=== PATIENT | female | born 1950 | race Caucasian/White ===

== ENCOUNTER 2018-07-05 16:06 | Outpatient (REF) | payer OTHER, SELFPAY ==
[2018-07-05 21:00] LABS: HCT 37.6 % (36.0-46.0); HGB 12.3 g/dL (12.0-15.5); Mean Corp. HGB Concentration 32.7 g/dL (32.0-36.0); Mean Corpuscular Hemoglobin 32.7 pg (27.0-33.0); Mean Platelet Volume 9.2 fL (8.0-11.0); Platelet Count 235 x1000/uL (130-400); RBC 3.76 m/cumm (4.00-5.20); RBC Distribution Width 12.3 % (11.7-14.6); White Blood Cell Count 6.48 k/cumm (4.4-10.8)
[2018-07-05 21:22] LABS: Anion Gap 6.2 mmol/L (3-11); BUN 15 mg/dL (7-18); CO2 29.8 mmol/L (21.0-32.0); CREATININE 0.82 mg/dL (0.55-1.02); Calcium 8.8 mg/dL (8.5-10.1); Chloride 103 mmol/L (98-107); FREE T4 1.01 ng/dL (0.76-1.46); Glucose 73 mg/dL (70-100); Potassium 3.7 mmol/L (3.5-5.1); Sodium 139 mmol/L (136-145); TSH 1.37 uIU/mL (0.358-3.74)
[2018-07-07 17:52] LABS: T3,Free 3.3 pg/ml (2.8-5.3)
[2018-07-08 11:49] LABS: Hepatitis C Ab w Rflx HCV PCR Negative (NEGAT)
== END 2018-07-05 16:26 ==
LOC: NCHCN 16:06
PROVIDERS: Visit Provider Nurse Practitioner Family
DX: E04.1 Nontoxic single thyroid nodule (principal); Z11.59 Encounter for screening for other viral diseases
CPT/HCPCS: 80048; 85027; 86803; 84439; 84443; 84481

== ENCOUNTER 2018-07-12 00:27 | Outpatient (CLI) | payer OTHER, SELFPAY ==
--- NOTE | 2018-07-12 11:36 | DI.US_ITS ---
SYMPTOM/DIAGNOSIS: LT THYROID NODULE, E04.1 THYROID ULTRASOUND: Comparison is made with 22 June 2010. The thyroid is again noted to be diffusely enlarged with numerable nodules isoechoic to thyroid tissue. No dominant mass or cyst is seen. Palpable area in the isthmus corresponds to 1.3 cm nodule in the isthmus. The right lobe measures 1.5 x 1.9 x 5.1 cm. The left lobe measures 1.7 x 1.7 x 5.6 cm. The interval thyroid size may have decreased when compared to 2010 exam. IMPRESSION: Multinodular thyroid
== END 2018-07-12 00:47 ==
PROVIDERS: PCP Family Medicine; Visit Provider Nurse Practitioner Family
DX: E04.2 Nontoxic multinodular goiter (principal)
CPT/HCPCS: 76536

== ENCOUNTER 2018-11-25 01:08 | Outpatient (CLI) | payer OTHER, SELFPAY ==
--- NOTE | 2018-11-25 17:14 | DI.MAMMO_ITS ---
SYMPTOM/DIAGNOSIS: SCREENING, Z12.31 MAMMOGRAMS: Mammograms were interpreted according to the usual protocol including computer analysis with CAD system, tomosynthesis and C view imaging. Comparison is made with prior examinations. Breast density, Category C. No suspicious masses or microcalcifications are seen. There is no definite evidence of malignancy. IMPRESSION: Negative mammogram. Routine screening is recommended. Category 1. MQSA ASSESSMENT OF FINDINGS: Negative. Category 1. Patient will receive a letter notifying them of these results. Bi-RADS category C. The breasts are heterogeneously dense, which may obscure small masses.
== END 2018-11-25 01:28 ==
PROVIDERS: PCP Family Medicine; Visit Provider Nurse Practitioner Family
DX: Z12.31 Encounter for screening mammogram for malignant neoplasm of breast (principal)
CPT/HCPCS: 77063; 77067

== ENCOUNTER 2019-05-12 16:47 | Outpatient (REF) | payer OTHER, SELFPAY ==
[2019-05-12 22:00] LABS: TSH (W/Ref FT4) 1.41 uIU/mL (0.36-3.74)
== END 2019-05-12 17:07 ==
LOC: NCHCN 16:47
PROVIDERS: PCP Family Medicine; Visit Provider Nurse Practitioner Family
DX: E04.2 Nontoxic multinodular goiter (principal); M85.80 Other specified disorders of bone density and structure, unspecified site; J45.30 Mild persistent asthma, uncomplicated; J30.9 Allergic rhinitis, unspecified
CPT/HCPCS: 84443

== ENCOUNTER 2019-08-21 13:26 | Outpatient (REF) | payer OTHER, SELFPAY ==
--- NOTE | 2019-08-21 09:42 | SKI_PTH ---
PATIENT: Lianne Patino LOC: [facility] U#:[id number] AGE/SX: 69/F ROOM: RE08/21/[address]: Han Smith MD : [id number] BED: DIS: 08/21/2019 SPEC #: [id number] RECD: 08/21/19 17:54 STATUS: IBRAHIMA REQ #: [id number] MARLEN: 08/21/19 09:[address]: Han Smith DEPT: Surgical Specimen RECD BY: Elena Henriquez ENTERED: 08/21/19 17:55 SP TYPE: CANDICE HERRERA DR: Deirdre Mata Tissues: 1 - SKIN BIOPSY(SHAVE/PUNCH) Procedures: SKIN LEVEL 4 Comments: [id number]
== END 2019-08-21 13:46 ==
LOC: LBN 13:26
PROVIDERS: PCP Family Medicine; Visit Provider Otolaryngology
DX: L82.0 Inflamed seborrheic keratosis (principal)
CPT/HCPCS: 88305

== ENCOUNTER 2020-02-24 21:44 | Outpatient (REF) | payer OTHER, SELFPAY ==
[2020-02-24 21:51] LABS: TSH 1.38 uIU/mL (0.36-3.74)
[2020-02-24 22:30] LABS: FREE T4 0.92 ng/dL (0.76-1.46)
== END 2020-02-24 22:04 ==
LOC: NCHCN 21:44
PROVIDERS: PCP Family Medicine; Visit Provider Physician Assistant
DX: E04.2 Nontoxic multinodular goiter (principal)
CPT/HCPCS: 84439; 84443

== ENCOUNTER 2020-03-18 01:45 | Outpatient (CLI) | payer OTHER, SELFPAY ==
--- NOTE | 2020-03-18 10:20 | DI.MAMMO_ITS ---
EXAM: MAMMO SCREENING CLINICAL HISTORY: SCREENING, [facility],Z00.00 TECHNIQUE: Mammograms were interpreted according to the usual protocol including computer analysis w [employer] CAD system, tomosynthesis and C-view imaging. COMPARISON: 2010 through 2018 FINDINGS: The breasts are composed of heterogeneously dense fibroglandular densities, Breast Density category C . No suspicious masses or suspicious microcalcifications are seen. No skin thickening or abnormal axillary lymph nodes are seen. There has been no significant change from prior exams. IMPRESSION: BI-RADS Category 1: Negative Yearly screening mammography is recommended. Breast Density Category C, heterogeneously dense tissue which decreases the sensitivity of the mammog jagdish. The mammogram demonstrates the patient's breast tissue is dense. Dense breast tissue is very common a nd is not abnormal but dense breast tissue can make it harder to find cancer on a mammogram. Also, de nse breast tissue may increase breast cancer risk. This information about the result of the mammogram report was provided to the patient to raise their awareness. Use this report when you speak with the patient about their risks for breast cancer, which includes their family history. At that time, you may recommend additional screening tests (Ultrasound or MRI) as they might be useful based on their r isk. A negative radiographic report should not delay biopsy if a dominant or clinically suspicious mass is present. Up to ten percent of cancers are not identified on mammography. A negative report may reinforce clinical impression. Adenosis and dense breasts may obscure an underlying neoplasm. False positive reports average 6 to 10%.
== END 2020-03-18 02:05 ==
PROVIDERS: PCP Family Medicine; Visit Provider Physician Assistant
DX: Z12.31 Encounter for screening mammogram for malignant neoplasm of breast (principal); Z00.00 Encounter for general adult medical examination without abnormal findings; R92.2 Inconclusive mammogram
CPT/HCPCS: 77063; 77067

== ENCOUNTER 2020-11-15 16:03 | Outpatient (REF) | payer MEDICARE, SELFPAY ==
[2020-11-15 20:44] LABS: HCT 33.8 % (36.0-46.0); HGB 11.1 g/dL (11.2-15.7); MCH 32.6 pg (27.0-33.0); MCHC 32.8 % (32.0-36.0); MCV 99.4 fL (80-95); MPV 9.4 fL (8.0-11.0); Platelet Count 218 10^3/uL (130-400); RDW 12.2 % (11.7-14.6); RDW-SD 44.5 fL; WBC 6.74 10^3/uL (4.4-10.8)
[2020-11-15 21:23] LABS: ALT 21 U/L (14-59); AST 18 U/L (15-37); Albumin 3.1 g/dL (3.4-5.0); Alkaline Phosphatase 55 U/L (46-116); Anion Gap 8.1 mmol/L (3-11); BUN 13 mg/dL (7-18); Bilirubin, Total 0.3 mg/dL (0.2-1.0); CO2 28.9 mmol/L (21.0-32.0); CREATININE 0.9 mg/dL (0.55-1.02); Calcium 8.3 mg/dL (8.5-10.1); Chloride 105 mmol/L (98-107); Glucose 80 mg/dL (74-106); Potassium 3.9 mmol/L (3.5-5.1); Sodium 142 mmol/L (136-145); TSH (W/Ref FT4) 1.68 uIU/mL (0.36-3.74); Total Protein 8.5 g/dL (6.4-8.2); Vitamin B12 516 pg/mL (193-986)
== END 2020-11-15 16:04 | disposition home or self-care (01) ==
LOC: NCHCN 16:03
PROVIDERS: PCP Family Medicine; Visit Provider Family Medicine
DX: R41.3 Other amnesia (principal); E04.2 Nontoxic multinodular goiter
CPT/HCPCS: 80053; 85027; 82607; 84443

== ENCOUNTER 2020-12-07 23:07 | Outpatient (REF) | payer MEDICARE, SELFPAY ==
[2020-12-07 13:48] LABS: Iron 34 ug/dL (50-170); Total Iron Binding Capacity 248 ug/dL (250-450)
[2020-12-07 13:49] LABS: Ferritin 95 ng/mL (8-252)
== END 2020-12-07 23:08 | disposition home or self-care (01) ==
LOC: NCHCN 23:07
PROVIDERS: PCP Family Medicine; Visit Provider Nurse Practitioner Family
DX: D64.9 Anemia, unspecified (principal)
CPT/HCPCS: 82728; 83540; 83550

== ENCOUNTER 2021-02-24 14:58 | Outpatient (REF) | payer MEDICARE, SELFPAY ==
[2021-02-24 13:58] LABS: Abs Immature Grans 0.01 10^3/uL (0.0-0.06); Absolute Basophil Count 0.05 10^3/uL (0.0-0.2); Absolute Eosinophil Count 0.24 10^3/uL (0.0-0.7); Absolute Lymphocyte Count 1.27 10^3/uL (1.2-3.4); Absolute Monocyte Count 0.44 10^3/uL (0.1-0.8); Absolute Neutrophil Count 2.11 10^3/uL (1.2-6.7); Basophils % 1.2; Eosinophils % 5.8; HCT 35.8 % (36.0-46.0); HGB 11.7 g/dL (11.2-15.7); Immature Grans % 0.2; Lymphocytes % 30.8; MCH 33.1 pg (27.0-33.0); MCHC 32.7 % (32.0-36.0); MCV 101.1 fL (80-95); MPV 9.4 fL (8.0-11.0); Monocytes % 10.7; Neutrophils % 51.3; Nucleated RBC 0 %; Platelet Count 214 10^3/uL (130-400); RBC 3.54 10^6/uL (3.93-5.22); RDW 12.5 % (11.7-14.6); RDW-SD 47.2 fL; WBC 4.12 10^3/uL (4.4-10.8)
[2021-02-24 14:04] LABS: Iron 59 ug/dL (50-170); Total Iron Binding Capacity 262 ug/dL (250-450); Transferrin Sat 23 % (15-50)
[2021-02-24 14:27] LABS: Vitamin D 25 Total 33.4 ng/mL (30-100)
[2021-02-25 10:51] LABS: Hepatitis C Ab w Rflx HCV PCR Negative (Negative)
== END 2021-02-24 14:59 | disposition home or self-care (01) ==
LOC: NCHCN 14:58
PROVIDERS: PCP Family Medicine; Visit Provider Nurse Practitioner Family
DX: Z11.59 Encounter for screening for other viral diseases (principal); Z00.00 Encounter for general adult medical examination without abnormal findings; Z12.11 Encounter for screening for malignant neoplasm of colon; M85.80 Other specified disorders of bone density and structure, unspecified site; H40.9 Unspecified glaucoma; D64.9 Anemia, unspecified; R41.3 Other amnesia; M79.676 Pain in unspecified toe(s); R06.83 Snoring; J45.30 Mild persistent asthma, uncomplicated; E04.2 Nontoxic multinodular goiter
CPT/HCPCS: 82306; 86803; 83540; 83550; 85025

== ENCOUNTER 2021-03-29 01:31 | Outpatient (CLI) | payer MEDICARE, SELFPAY ==
--- NOTE | 2021-03-29 | DI.US_ITS ---
Exam(s) US THYROID EXAM: US THYROID CLINICAL HISTORY: MULTI NODULAR GOITER,E04.2. TECHNIQUE: Ultrasound thyroid performed using standard protocol. COMPARISON: US US thyroid from 07/12/2018 US US thyroid from 07/12/2018 FINDINGS: ISTHMUS: 5 mm a isoechoic nodule measuring 1.4 x 0.7 x 1.4 cm, not significantly changed from previ ous exam. RIGHT LOBE: Size: 4.5 x 2.2 x 1.9 cm Echogenicity: Diffusely heterogeneous and nodular. Vascularity: Hyperemic Nodules: None. LEFT LOBE: Size: 4.9 x 2.0 x 1.9 cm Echogenicity: Diffusely heterogeneous and nodular. No dominant nodule. Vascularity: Hyperemic. Nodules: None. OTHER FINDINGS: No adenopathy identified. IMPRESSION: Stable appearance multinodular thyroid and isthmus nodule. DATA REPOSITORY:
--- NOTE | 2021-03-29 | DI.MAMMO_ITS ---
Exam(s) MAMMO SCREENING EXAM: MAMMO SCREENING CLINICAL HISTORY: SCREENING,Z12.31 TECHNIQUE: Mammograms were interpreted according to the usual protocol including computer analysis w [employer] CAD system, tomosynthesis and C-view imaging. COMPARISON: 2010 through 2019 FINDINGS: The breasts are composed of heterogeneously dense fibroglandular densities, Breast Density category C . No suspicious masses or suspicious microcalcifications are seen. No skin thickening or abnormal axillary lymph nodes are seen. There has been no significant change from prior exams. IMPRESSION: BI-RADS Category 1, Negative mammogram. Yearly screening mammography is recommended. Breast Density Category C, heterogeneously Dense. The mammogram demonstrates the patient's breast tissue is dense. Dense breast tissue is very common a nd is not abnormal but dense breast tissue can make it harder to find cancer on a mammogram. Also, de nse breast tissue may increase breast cancer risk. This information about the result of the mammogram report was provided to the patient to raise their awareness. Use this report when you speak with the patient about their risks for breast cancer, which includes their family history. At that time, you may recommend additional screening tests (Ultrasound or MRI) as they might be useful based on their r isk. A negative radiographic report should not delay biopsy if a dominant or clinically suspicious mass is present. Up to ten percent of cancers are not identified on mammography. A negative report may reinforce clinical impression. Adenosis and dense breasts may obscure an underlying neoplasm. False positive reports average 6 to 10%.
== END 2021-03-29 01:51 ==
PROVIDERS: PCP Family Medicine; Visit Provider Nurse Practitioner Family
DX: Z12.31 Encounter for screening mammogram for malignant neoplasm of breast (principal); E04.2 Nontoxic multinodular goiter; R92.8 Other abnormal and inconclusive findings on diagnostic imaging of breast
CPT/HCPCS: 77063; 77067; 76536

== ENCOUNTER 2021-03-31 03:01 | Outpatient (CLI) | payer MEDICARE, SELFPAY ==
--- NOTE | 2021-03-31 | DI.DEXA_ITS ---
Exam(s) XR DEXA BONE DENSITY W/WO GLENN EXAM: XR DEXA BONE DENSITY W/WO GLENN CLINICAL HISTORY: DISORDER OF BONE DENSITY, M85.88 TECHNIQUE: COMPARISON: Comparison 11/14/2016. FINDINGS: Lateral Spine Image: Unremarkable. No compression deformities identified. Left hip: Total T-Score: -1.5. This compares to -1.2 on the prior examination. Total Z-Score: 0.0 T- and Z-scores: Findings consistent with osteopenia. Lumbar Spine: Total T-Score: -0.1. This is unchanged compared to the prior examination. Total Z-Score: 2.0 T- and Z-scores: Within normal limits. IMPRESSION: No evidence of osteoporosis.
== END 2021-03-31 03:21 ==
PROVIDERS: PCP Family Medicine; Visit Provider Nurse Practitioner Family
DX: M85.88 Other specified disorders of bone density and structure, other site (principal)
CPT/HCPCS: 77080

== ENCOUNTER 2022-03-17 16:55 | Outpatient (REF) | payer OTHER, SELFPAY ==
[2022-03-17 16:07] LABS: Absolute Basophil Count 0.04 10^3/uL (0.0-0.2); Absolute Eosinophil Count 0.16 10^3/uL (0.0-0.7); Absolute Lymphocyte Count 1.23 10^3/uL (1.2-3.4); Absolute Monocyte Count 0.48 10^3/uL (0.1-0.8); Absolute Neutrophil Count 1.56 10^3/uL (1.2-6.7); Basophils % 1.2; Eosinophils % 4.6; HCT 32.2 % (36.0-46.0); HGB 10.8 g/dL (11.2-15.7); Lymphocytes % 35.4; MCH 33.3 pg (27.0-33.0); MCHC 33.5 % (32.0-36.0); MCV 99 fL (80-95); MPV 9.5 fL (8.0-11.0); Monocytes % 13.8; Platelet Count 199 10^3/uL (130-400); RBC 3.24 10^6/uL (3.93-5.22); RDW-SD 46.9 fL; WBC 3.47 10^3/uL (4.4-10.8)
[2022-03-17 16:56] LABS: Calculated LDL 68 mg/dL (<100); Cholesterol 138 mg/dL (<200); Ferritin 97 ng/mL (8-252); HDL Cholesterol 64 mg/dL (40-60); Triglyceride 32 mg/dL (<150); Vitamin B12 301 pg/mL (193-986)
[2022-03-17 16:59] LABS: Folate > 20.0 ng/mL (8.6-20.0)
[2022-03-17 17:30] LABS: Iron 49 ug/dL (50-170); Total Iron Binding Capacity 245 ug/dL (250-450); Transferrin Sat 20 % (15-50)
== END 2022-03-17 16:56 | disposition home or self-care (01) ==
LOC: NCHCN 16:55
PROVIDERS: PCP Family Medicine; Visit Provider Nurse Practitioner Family
DX: E55.9 Vitamin D deficiency, unspecified (principal); D64.9 Anemia, unspecified; E04.2 Nontoxic multinodular goiter; D75.89 Other specified diseases of blood and blood-forming organs; R79.89 Other specified abnormal findings of blood chemistry; R41.3 Other amnesia
CPT/HCPCS: 80061; 82607; 82728; 82746; 83540; 83550; 84443; 85025

== ENCOUNTER → 2022-03-31 00:05 | Outpatient (CLI) | payer OTHER, SELFPAY ==
--- NOTE | 2022-03-31 11:45 | DI.MAMMO_ITS ---
Exam(s) MAMMO SCREENING EXAM: MAMMO SCREENING CLINICAL HISTORY: SCREENING, Z12.31 TECHNIQUE: Mammograms were interpreted according to the usual protocol including computer analysis w [employer] CAD system, tomosynthesis and C-view imaging. COMPARISON: 2012 through 2020 FINDINGS: The breasts are composed of heterogeneously dense fibroglandular densities, Breast Density category C . No suspicious masses or suspicious microcalcifications are seen. No skin thickening or abnormal axillary lymph nodes are seen. There has been no significant change from prior exams. IMPRESSION: BI-RADS Category 1, Negative mammogram. Yearly screening mammography is recommended. Breast Density Category C, heterogeneously Dense. The mammogram demonstrates the patient's breast tissue is dense. Dense breast tissue is very common a nd is not abnormal but dense breast tissue can make it harder to find cancer on a mammogram. Also, de nse breast tissue may increase breast cancer risk. This information about the result of the mammogram report was provided to the patient to raise their awareness. Use this report when you speak with the patient about their risks for breast cancer, which includes their family history. At that time, you may recommend additional screening tests (Ultrasound or MRI) as they might be useful based on their r isk. A negative radiographic report should not delay biopsy if a dominant or clinically suspicious mass is present. Up to ten percent of cancers are not identified on mammography. A negative report may reinforce clinical impression. Adenosis and dense breasts may obscure an underlying neoplasm. False positive reports average 6 to 10%.
== END ==
PROVIDERS: PCP Family Medicine; Visit Provider Nurse Practitioner Family
DX: Z12.31 Encounter for screening mammogram for malignant neoplasm of breast (principal); R92.8 Other abnormal and inconclusive findings on diagnostic imaging of breast
CPT/HCPCS: 77063; 77067

== ENCOUNTER 2022-05-23 08:36 | Outpatient (REF) | payer OTHER, SELFPAY ==
[2022-05-23 14:55] LABS: Abs Immature Grans 0.02 10^3/uL (0.0-0.06); Absolute Basophil Count 0.04 10^3/uL (0.0-0.2); Absolute Eosinophil Count 0.21 10^3/uL (0.0-0.7); Absolute Lymphocyte Count 1.23 10^3/uL (1.2-3.4); Absolute Monocyte Count 0.77 10^3/uL (0.1-0.8); Absolute Neutrophil Count 3.45 10^3/uL (1.2-6.7); Basophils % 0.7; Eosinophils % 3.7; HCT 30.9 % (36.0-46.0); HGB 10.4 g/dL (11.2-15.7); Immature Grans % 0.3; Lymphocytes % 21.5; MCH 33.2 pg (27.0-33.0); MCHC 33.7 % (32.0-36.0); MCV 99 fL (80-95); MPV 9.2 fL (8.0-11.0); Monocytes % 13.5; Neutrophils % 60.3; Platelet Count 170 10^3/uL (130-400); RBC 3.13 10^6/uL (3.93-5.22); RDW 13.1 % (11.7-14.6); RDW-SD 46.8 fL; WBC 5.72 10^3/uL (4.4-10.8)
== END 2022-05-23 08:37 | disposition home or self-care (01) ==
LOC: NCHCN 08:36
PROVIDERS: PCP Family Medicine; Visit Provider Nurse Practitioner Family
DX: D75.89 Other specified diseases of blood and blood-forming organs (principal)
CPT/HCPCS: 85025

== ENCOUNTER → 2022-06-27 10:44 | Outpatient (BNVA) | payer OTHER, SELFPAY | PROVIDERS: PCP Family Medicine; Referring Provider Nurse Practitioner Family; Visit Provider Surgery | DX: D50.9 Iron deficiency anemia, unspecified; R63.4 Abnormal weight loss; R11.0 Nausea; K59.09 Other constipation | CPT/HCPCS: 99203; 99243 ==

== ENCOUNTER 2022-06-28 03:33 | Outpatient (CLI) | payer OTHER, SELFPAY ==
[2022-06-28 10:34] LABS: Abs Immature Grans 0.02 10^3/uL (0.0-0.06); Absolute Basophil Count 0.04 10^3/uL (0.0-0.2); Absolute Lymphocyte Count 1.23 10^3/uL (1.2-3.4); Absolute Monocyte Count 0.48 10^3/uL (0.1-0.8); Absolute Neutrophil Count 2.62 10^3/uL (1.2-6.7); Basophils % 0.9; Eosinophils % 2.2; HCT 26.4 % (36.0-46.0); HGB 8.7 g/dL (11.2-15.7); Immature Grans % 0.4; Lymphocytes % 27.4; MCH 32.6 pg (27.0-33.0); MCV 99 fL (80-95); MPV 9.4 fL (8.0-11.0); Monocytes % 10.7; Neutrophils % 58.4; Platelet Count 163 10^3/uL (130-400); RBC 2.67 10^6/uL (3.93-5.22); RDW 12.5 % (11.7-14.6); RDW-SD 45.5 fL; WBC 4.49 10^3/uL (4.4-10.8)
[2022-06-28 10:37] LABS: Reticulocyte 0.3 % (0.5-2.4)
[2022-06-28 11:19] LABS: Iron 70 ug/dL (50-170); Total Iron Binding Capacity 249 ug/dL (250-450); Transferrin Sat 28 % (15-50)
[2022-06-28 11:29] LABS: ALT 16 U/L (14-59); AST 16 U/L (15-37); Albumin 2.9 g/dL (3.4-5.0); Alkaline Phosphatase 36 U/L (46-116); BUN 43 mg/dL (7-18); Bilirubin, Total 0.5 mg/dL (0.2-1.0); C-Reactive Protein 0.09 mg/dL (0.0-0.3); CREATININE 2.7 mg/dL (0.55-1.02); Calcium 8.9 mg/dL (8.5-10.1); Chloride 103 mmol/L (98-107); Estimated GFR 18.29 (mL/min/1.73m2); Glucose 88 mg/dL (74-106); LDH 113 U/L (81-234); Potassium 4.3 mmol/L (3.5-5.1); Sodium 139 mmol/L (136-145)
[2022-06-28 12:01] LABS: Folate 19.1 ng/mL (8.6-20.0)
[2022-06-28 16:29] LABS: TSH 1.91 uIU/mL (0.36-3.74)
[2022-06-29 09:46] LABS: Haptoglobin 79 mg/dL (32-197)
[2022-06-29 14:03] LABS: ANA Interpretation Positive (Negative); ANA Titer Pattern 1:160 Speckled
== END 2022-06-28 03:34 | disposition home or self-care (01) ==
LOC: LBO 03:33
PROVIDERS: PCP Family Medicine; Visit Provider Surgery
DX: F50.89 Other specified eating disorder (principal); D50.9 Iron deficiency anemia, unspecified; K59.09 Other constipation; R63.4 Abnormal weight loss; R41.3 Other amnesia
CPT/HCPCS: 36415; 80053; 86850; 86900; 86901; 82746; 83010; 83540; 83550; 83615; 84443; 85025; 85045; 86038; 86140

== ENCOUNTER 2022-06-29 09:02 | Outpatient (CLI) | payer OTHER, SELFPAY ==
[2022-06-29 11:03] LABS: Bilirubin Negative (Negative); Blood Negative (Negative); Clarity Clear (Clear); Glucose Negative (Negative); Ketones Negative (Negative); Leukocyte Esterase Negative (Negative); Nitrite Negative (Negative); Urobilinogen 0.2 EU/dL (Up TO 0.2)
[2022-06-29 11:14] LABS: Anion Gap 7.9 mmol/L (3-11); BUN 41 mg/dL (7-18); CO2 27.1 mmol/L (21.0-32.0); CREATININE 2.3 mg/dL (0.55-1.02); Calcium 8.4 mg/dL (8.5-10.1); Chloride 98 mmol/L (98-107); Estimated GFR 22.17 (mL/min/1.73m2); Glucose 95 mg/dL (74-106); Magnesium 1.8 mg/dL (1.8-2.4); Potassium 3.8 mmol/L (3.5-5.1); Sodium 133 mmol/L (136-145)
== END 2022-06-29 09:03 | disposition home or self-care (01) ==
LOC: LBO 09:23
PROVIDERS: PCP Family Medicine; Visit Provider Surgery
DX: D50.9 Iron deficiency anemia, unspecified (principal); F50.89 Other specified eating disorder; K59.09 Other constipation; N19 Unspecified kidney failure; R11.0 Nausea; R63.4 Abnormal weight loss
CPT/HCPCS: 36415; 80048; 81003; 83735

== ENCOUNTER → 2022-07-03 01:41 | Outpatient (CLI) | payer OTHER, SELFPAY ==
--- NOTE | 2022-07-03 07:45 | DI.US_ITS ---
Exam(s) US RENAL EXAM: US RENAL CLINICAL HISTORY: new diagnosis/kidney evaluation,RENAL FAILURE,N18.4. TECHNIQUE: Palumbo scale, color and spectral Doppler were used. COMPARISON: No exams were available for comparison FINDINGS: Renal size in cm: Right: 9.9 left: 10.3 Echogenicity: Normal Hydronephrosis: No Cyst or mass: No Nephrolithiasis: No Bladder:Normal Prevoid vol:173 cc Postvoid vol:Patient unable to void. IMPRESSION: Negative renal ultrasound. DATA REPOSITORY:
== END ==
PROVIDERS: PCP Family Medicine; Visit Provider Surgery
DX: D64.9 Anemia, unspecified (principal); F50.89 Other specified eating disorder; N18.4 Chronic kidney disease, stage 4 (severe); R41.3 Other amnesia
CPT/HCPCS: 76770

== ENCOUNTER 2022-07-05 18:13 | Outpatient (REF) | payer OTHER, SELFPAY ==
[2022-07-05 20:50] LABS: Bilirubin Negative (Negative); Blood Trace-intact (Negative); Clarity Clear (Clear); Glucose Negative (Negative); HGB 7.9 g/dL (11.2-15.7); Ketones Negative (Negative); Leukocyte Esterase Trace (Negative); MCH 32.8 pg (27.0-33.0); MCHC 32.9 % (32.0-36.0); MCV 100 fL (80-95); Nitrite Negative (Negative); Platelet Count 148 10^3/uL (130-400); RBC 2.41 10^6/uL (3.93-5.22); RDW 12.3 % (11.7-14.6); RDW-SD 44.9 fL; Specific Gravity 1.015 (1.005-1.025); Urobilinogen 0.2 EU/dL (Up TO 0.2); WBC 4.59 10^3/uL (4.4-10.8)
[2022-07-05 20:53] LABS: COMMENT (LAB VIEW ONLY) 27.02 mg/dL; PROTEIN 79.3 mg/dL; Prot/Crea Ur Ratio 2.93
[2022-07-05 21:09] LABS: Anion Gap 7.5 mmol/L (3-11); BUN 35 mg/dL (7-18); CO2 28.5 mmol/L (21.0-32.0); CREATININE 2.2 mg/dL (0.55-1.02); Calcium 8.6 mg/dL (8.5-10.1); Chloride 99 mmol/L (98-107); Estimated GFR 23.38 (mL/min/1.73m2); Glucose 86 mg/dL (74-106); NT-proBNP 446 pg/mL (<300); PHOSPHORUS 3.6 mg/dL (2.6-4.7); Potassium 3.8 mmol/L (3.5-5.1); Sodium 135 mmol/L (136-145)
[2022-07-05 21:12] LABS: RBC Negative HPF (0-2)
[2022-07-05 21:13] LABS: Bacteria Rare HPF (Negative); C & S Indicated? No; Crystals Negative HPF (Negative); Epithelial Cells Rare HPF (Negative); Mucus Negative (Negative)
[2022-07-07 12:35] LABS: Albumin 36.1 % (55.8-66.1); Albumin g/dL 3.8 g/dL (3.6-5.2); Comment (See Note); Monoclonal Spike 45.2 % (None Seen); Monoclonal Spike g/dL 4.7 g/dL (None Seen); Total Protein 10.4 g/dL (6.3-8.2)
[2022-07-07 14:28] LABS: Immunotyping, Serum (See Note)
[2022-07-11 15:04] LABS: dsDNA Ab, IgG 15.8 IU/mL (<30.0)
== END 2022-07-05 18:14 | disposition home or self-care (01) ==
LOC: NCHCN 18:13
PROVIDERS: PCP Family Medicine; Visit Provider Internal Medicine
DX: R07.89 Other chest pain (principal); D53.9 Nutritional anemia, unspecified; N18.4 Chronic kidney disease, stage 4 (severe); J45.20 Mild intermittent asthma, uncomplicated; R80.9 Proteinuria, unspecified
CPT/HCPCS: 80048; 82668; 85027; 81003; 81015; 82565; 83880; 84100; 84156; 84165; 86225; 86320

== ENCOUNTER 2022-07-11 20:50 | Outpatient (REF) | payer OTHER, SELFPAY ==
[2022-07-12 14:53] LABS: Albumin, Urine % 3.3 %; Albumin, Urine mg/dL 4 mg/dL; Globulins, Urine % 96.7 %; Globulins, Urine mg/dL 117 mg/dL; Immunotyping, Urine (See Note); Monoclonal Spike, Urine 82.8 %; Monoclonal Spike, Urine mg/dL 100 mg/dL; Total Protein Urine 121 mg/dL (See Note)
== END 2022-07-11 20:51 | disposition home or self-care (01) ==
LOC: NCHCN 20:50
PROVIDERS: PCP Family Medicine; Visit Provider Internal Medicine
DX: D47.2 Monoclonal gammopathy (principal)
CPT/HCPCS: 84156; 84166; 86335

== ENCOUNTER → 2022-07-14 00:52 | Outpatient (CLI) | payer OTHER, SELFPAY ==
--- NOTE | 2022-07-14 | DI.RAD_ITS ---
Exam(s) XR BONE SURVEY EXAM: XR BONE SURVEY CLINICAL HISTORY: MONOCLONAL GAMMOPATHY UNDETERMINED SIGNIFICANCE, D47.2 TECHNIQUE: COMPARISON: CR XR DEXA BONE DENSITY W/WO GLENN from 03/31/2021 FINDINGS: Complete skeletal survey was performed according to the usual protocol. There is reportedly history of monoclonal gammopathy. No focal bony lesion identified to suggest the presence of multiple myeloma. There are moderate dege nerative changes of the thoracic, lumbar, and cervical spine. IMPRESSION: Negative skeletal survey. RADIATION DOSE DELIVERED: Total DLP
== END ==
PROVIDERS: PCP Family Medicine; Visit Provider Internal Medicine
DX: D47.2 Monoclonal gammopathy (principal)
CPT/HCPCS: 77075

== ENCOUNTER 2022-10-05 00:35 | Outpatient (CLI) | payer OTHER, SELFPAY ==
--- NOTE | 2022-10-05 | DI.US_ITS ---
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 TECHNIQUE: Ultrasound thyroid performed using standard protocol. COMPARISON: Prior ultrasound examinations March 2021 and June 2018. FINDINGS: Both thyroid lobes as well as the isthmus are again noted be slightly prominent size. Echotexture is again noted be diffusely heterogeneous and the entire gland is noted to be hyperemic. Again noted a re innumerable nodules which are isoechoic to the gland parenchyma making it difficult to determine t he borders of these nodules in all imaging planes. Findings are consistent with multinodular goiter. The patient apparently feels that the right-side of the gland might be slightly enlarging. RIGHT THYROID LOBE: Measures 1.6 cm AP x 2.2 cm wide x 5.4 cm craniocaudal With respect to the dominant possible discernible nodule in the right lobe: Size: Measures 1.4 by 1.3 x 2.5 cm Composition: Solid-2 points Echogenicity: Isoechoic to surrounding parenchyma-1 point Shape: Approximately equal height and with in the transverse plane-0 points Margin: Dfp-dcismal-6 points Echogenic Foci: None-0 points Total Points for this nodule: 3 ACR Ti-Rads Category: TR3 Given that the largest dimension of this nodule appears to be approximately 2.5 cm (craniocaudal plan e), this TR3 nodule is at threshold for ultrasound-guided FNA. ISTHMUS: The echo texture of the isthmus is similar to the remainder of the gland and the isthmus is slightly thickened. A nodule which was previously discussed in the left side of the isthmus is class ified as follows: Size: Measures 1.3 by 0.8 by 2.4 cm Composition: Solid-2 points Echogenicity: Isoechoic-1 points Shape: Wider than taller in the transverse plane-0 points Margin: Smooth-0 points Echogenic Foci: None-0 points Total points for this nodule: 3 ACR Ti-Rads Category: 3 This nodule appears similar to prior studies and measures less than 2.4 cm and therefore can be monit ored. LEFT THYROID LOBE: Measures 1.5 cm AP x 1.8 wide x 5.8 cm craniocaudal No dominant nodules LYMPH NODES: Small benign-appearing lymph nodes seen bilaterally. IMPRESSION: 1. Compared to the prior studies above the appearance of the thyroid is again that of a multinodular goiter with numerous isoechoic nodules again evident. These exhibit minimal if any significant rosario e when compared to prior studies. 2. With respect to what the patient claims to be feeling in the right side, this may correspond to th e dominant right-sided nodule described above which is the largest nodule in this multinodular goiter and is TR3 classification and is at threshold size for ultrasound-guided FNA. 3. There is no significant lymphadenopathy. DATA REPOSITORY:
== END 2022-10-05 00:55 ==
LOC: DI 00:35
PROVIDERS: PCP Family Medicine; Visit Provider Family Medicine
DX: E04.1 Nontoxic single thyroid nodule (principal); C90.00 Multiple myeloma not having achieved remission
CPT/HCPCS: 76536

== ENCOUNTER → 2023-04-02 20:14 | Outpatient (CLI) | payer MEDICARE, OTHER, MEDICAID, SELFPAY ==
--- NOTE | 2023-04-02 | DI.MAMMO_ITS ---
Exam(s) MAMMO SCREENING EXAM: MAMMO SCREENING CLINICAL HISTORY: PREOP,MULT MYELOMA,STEM CELL TRANSPLANT, SCREENING,. TECHNIQUE: Bilateral full field digital CC and MLO mammographic images were obtained with 3D tomosyn thesis and utilizing computer aided detection (CAD). COMPARISON: Prior mammograms were reviewed. FINDINGS: The fibroglandular tissue pattern is again noted to be dense, this somewhat decreasing the sensitivit y of the mammogram for finding hidden underlying lesions. In the medial aspect of each breast there is a nodular density which was not evident on prior mammogr ams. In the left breast this measures approximately 7 x 6 mm and similar measurement of nodule at si milar location in the opposite-right breast. Both nodules are located 5 cm in from the nipple on the CC views. There are no malignant-appearing microcalcification groups in either breast. There is no significant architectural distortion nor skin thickening-retraction. IMPRESSION: Asymmetric density-possible nodules in the medial aspect of both breasts. Bilateral spot compression CC views as well as bilateral breast ultrasound recommended. BI-RADS Category 0 - Assessment Incomplete: Need additional imaging evaluation Breast Density - Category C - Heterogeneously dense Breast density Category C or D implies that the patient has dense breast tissue. Dense breast tissue can make it harder to find cancer on a mammogram. Dense breast tissue is also associated with an incr eased risk of breast cancer. This information about the result of the mammogram report was provided to the patient to raise their awareness. Use this report when you speak with the patient about their risks for breast cancer, which includes their family history. At that time, you may recommend additional screening tests (Ultrasoun d or MRI) as these tests may add significant information. A negative radiographic report should not delay biopsy if a dominant or clinically suspicious mass is present. Up to ten percent of cancers are not identified on mammography. A negative report may reinforce clinical impression. Adenosis and dense breasts may obscure an underlying neoplasm. False positive reports average 6 to 10%. Patient will receive a letter notifying them of these results.
== END ==
PROVIDERS: PCP Family Medicine; Visit Provider Nurse Practitioner
DX: Z12.31 Encounter for screening mammogram for malignant neoplasm of breast (principal); R92.8 Other abnormal and inconclusive findings on diagnostic imaging of breast
CPT/HCPCS: 77063; 77067

== ENCOUNTER → 2023-04-10 02:04 | Outpatient (CLI) | payer MEDICARE, OTHER, MEDICAID, SELFPAY ==
--- NOTE | 2023-04-10 | DI.US_ITS ---
Exam(s) US BREAST RT LIMITED US BREAST LT LIMITED MG MAMMO SCREEN CALL BACK BI EXAM: MG MAMMO SCREEN CALL BACK BI COMPLETE BILATERAL BREAST ULTRASOUND CLINICAL HISTORY: F/U MAMMO, ASYMMETRIC DENSITY, POSSIBLE NODULES JOSE G. TECHNIQUE: BILATERAL l spot mammographic images obtained with 3D tomosynthesisand utilizing computer aided detection (CAD). . Complete BILATERAL breast Ultrasound was also performed, including all 4 quadrants, the retroareolar region, and the ipsilateral axilla. COMPARISON: Prior mammograms were reviewed. This additional imaging was performed due to findings described on the recent screening mammogram of 04/02/2023. FINDINGS: DIAGNOSTIC MAMMOGRAM: Additional mammographic views performed todayrender both areas less concerning and similar in appeara nce to prior mammograms. COMPLETE BILATERAL BREAST ULTRASOUND: Ultrasound performed today reveals no evidence of solid or significant cystic lesions in all 4 quadra nts of both breasts.. Scanning of the bilateral axillary regions reveals no significant axillary adenopathy. IMPRESSION: 1. No radiographic evidence of malignancy in either breast. 2. Negative complete bilateral breast ultrasound Appropriate follow-up is to keep this patient on her yearly mammogram schedule, with earlier imaging if a self detected breast change is noted.. The patient was informed of these findings and recommendations by myself prior to leaving the [facility] ent today. BI-RADS Category 2 - Benign Findings Breast Density - Category C - Heterogeneously dense Breast density Category C or D implies that the patient has dense breast tissue. Dense breast tissue can make it harder to find cancer on a mammogram. Dense breast tissue is also associated with an incr eased risk of breast cancer. This information about the result of the mammogram report was provided to the patient to raise their awareness. Use this report when you speak with the patient about their risks for breast cancer, which includes their family history. At that time, you may recommend additional screening tests (Ultrasoun d or MRI) as these tests may add significant information. A negative radiographic report should not delay biopsy if a dominant or clinically suspicious mass is present. Up to ten percent of cancers are not identified on mammography. A negative report may reinforce clinical impression. Adenosis and dense breasts may obscure an underlying neoplasm. False positive reports average 6 to 10%. Patient will receive a letter notifying them of these results.
== END ==
PROVIDERS: PCP Family Medicine; Visit Provider Nurse Practitioner
DX: Z12.31 Encounter for screening mammogram for malignant neoplasm of breast (principal); R92.8 Other abnormal and inconclusive findings on diagnostic imaging of breast
CPT/HCPCS: 76642; 77063; 77067

== ENCOUNTER 2023-10-22 09:43 | Outpatient (REF) | payer MEDICARE, OTHER, MEDICAID, SELFPAY ==
[2023-10-22 11:09] LABS: C Diff PCR Negative (Negative)
== END 2023-10-22 09:44 | disposition home or self-care (01) ==
LOC: LBN 09:43
PROVIDERS: PCP Family Medicine; Visit Provider Nurse Practitioner
DX: R19.7 Diarrhea, unspecified (principal)
CPT/HCPCS: 87493

== ENCOUNTER 2023-12-24 12:23 | Outpatient (REF) | payer MEDICARE, OTHER, MEDICAID, SELFPAY ==
[2023-12-24 15:05] LABS: Abs Immature Grans 0.01 10^3/uL (0.0-0.06); Absolute Eosinophil Count 0.13 10^3/uL (0.0-0.7); Absolute Lymphocyte Count 1.03 10^3/uL (1.2-3.4); Absolute Monocyte Count 0.58 10^3/uL (0.1-0.8); Basophils % 2.6 %; Eosinophils % 3.4 %; HCT 31.4 % (36.0-46.0); HGB 10.5 g/dL (11.2-15.7); Immature Grans % 0.3 %; Lymphocytes % 27.2 %; MCH 34.9 pg (27.0-33.0); MCHC 33.4 % (32.0-36.0); MCV 104 fL (80-95); MPV 10.6 fL (8.0-11.0); Monocytes % 15.3 %; Neutrophils % 51.2 %; Platelet Count 119 10^3/uL (130-400); RBC 3.01 10^6/uL (3.93-5.22); RDW 15.8 % (11.7-14.6); RDW-SD 61.2 fL; WBC 3.78 10^3/uL (4.4-10.8)
[2023-12-24 15:08] LABS: Absolute Neutrophil Count 1.94 10^3/uL (1.2-6.7)
== END 2023-12-24 12:24 | disposition home or self-care (01) ==
LOC: NCHCN 12:23
PROVIDERS: PCP Family Medicine; Visit Provider Family Medicine
DX: C90.01 Multiple myeloma in remission (principal)
CPT/HCPCS: 85025

== ENCOUNTER 2024-03-31 13:24 | Outpatient (REF) | payer MEDICARE, OTHER, MEDICAID, SELFPAY ==
[2024-03-31 16:06] LABS: Abs Immature Grans 0.01 10^3/uL (0.0-0.06); Absolute Basophil Count 0.02 10^3/uL (0.0-0.2); Absolute Eosinophil Count 0.36 10^3/uL (0.0-0.7); Absolute Lymphocyte Count 0.65 10^3/uL (1.2-3.4); Absolute Monocyte Count 0.41 10^3/uL (0.1-0.8); Basophils % 0.7 %; Eosinophils % 12.2 %; HCT 30.3 % (36.0-46.0); HGB 10.2 g/dL (11.2-15.7); Immature Grans % 0.3 %; MCHC 33.7 % (32.0-36.0); MCV 110 fL (80-95); MPV 12.3 fL (8.0-11.0); Monocytes % 13.9 %; Neutrophils % 50.9 %; RBC 2.76 10^6/uL (3.93-5.22); RDW-SD 52.4 fL; WBC 2.95 10^3/uL (4.4-10.8)
[2024-03-31 17:14] LABS: Anion Gap 9.1 mmol/L (3-11); BUN 15 mg/dL (7-18); CO2 27.9 mmol/L (21.0-32.0); CREATININE 1.3 mg/dL (0.55-1.02); Calcium 8.7 mg/dL (8.5-10.1); Chloride 103 mmol/L (98-107); Estimated GFR 43.42 (mL/min/1.73m2); Glucose 97 mg/dL (74-106); Potassium 3.7 mmol/L (3.5-5.1); Sodium 140 mmol/L (136-145); Vitamin B12 675 pg/mL (193-986)
[2024-03-31 17:16] LABS: Diff Comment RBC Morph Reviewed; Macrocytosis 2+; Platelet Count 86 10^3/uL (130-400)
== END 2024-03-31 13:25 | disposition home or self-care (01) ==
LOC: NCHCN 13:24
PROVIDERS: PCP Family Medicine; Visit Provider Family Medicine
DX: R47.01 Aphasia (principal); C90.01 Multiple myeloma in remission; Z86.2 Personal history of diseases of the blood and blood-forming organs and certain disorders involving the immune mechanism
CPT/HCPCS: 80048; 82607; 85025

== ENCOUNTER 2024-05-01 21:19 | Outpatient (REF) | payer MEDICARE, OTHER, MEDICAID, SELFPAY | END 2024-05-01 21:20 | disposition home or self-care (01) | LOC: NCHCN 21:19 | PROVIDERS: PCP Family Medicine; Visit Provider Family Medicine | DX: R25.1 Tremor, unspecified (principal) | CPT/HCPCS: 84443 ==

== ENCOUNTER 2024-06-04 02:15 | Outpatient (CLI) | payer MEDICARE, OTHER, MEDICAID, SELFPAY ==
--- NOTE | 2024-06-04 | DI.US_ITS ---
Exam(s) US HERNIA EXAM: US HERNIA CLINICAL HISTORY: LLQ PAIN R10.32, R/O HERNIA, H/O MULTIPLE MYELOMA. TECHNIQUE: Ultrasound was performed using standard protocol. COMPARISON: No exams were available for comparison FINDINGS: Sonographic assessment utilizing grayscale and color Doppler imaging was performed and targeted to th e area of clinical concern. The left inguinal region was evaluated sonographically. No sonographic evidence of a hernia. No mas s is identified sonographically. IMPRESSION: No evidence of a hernia sonographically. DATA REPOSITORY:
== END 2024-06-04 02:35 ==
LOC: DI 02:15
PROVIDERS: PCP Family Medicine; Visit Provider Family Medicine
DX: R10.32 Left lower quadrant pain (principal)
CPT/HCPCS: 76857

== ENCOUNTER → 2024-10-08 13:05 | Outpatient (BNVA) | payer MEDICARE, OTHER, MEDICAID, SELFPAY | PROVIDERS: PCP Family Medicine; Referring Provider Family Medicine | DX: M16.12 Unilateral primary osteoarthritis, left hip (principal) | CPT/HCPCS: 99204 ==

== ENCOUNTER 2024-11-18 12:53 | Outpatient (REF) | payer MEDICARE, OTHER, SELFPAY ==
[2024-11-18 16:14] LABS: HCT 32.6 % (36.0-46.0); HGB 10.6 g/dL (11.2-15.7); MCH 36.2 pg (27.0-33.0); MCHC 32.5 % (32.0-36.0); MCV 111 fL (80-95); MPV 9.7 fL (8.0-11.0); Platelet Count 144 10^3/uL (130-400); RBC 2.93 10^6/uL (3.93-5.22); RDW 12.1 % (11.7-14.6); RDW-SD 50.4 fL; WBC 6.95 10^3/uL (4.4-10.8)
[2024-11-18 16:36] LABS: Anion Gap 8.8 mmol/L (3-11); BUN 24 mg/dL (7-18); CO2 25.2 mmol/L (21.0-32.0); CREATININE 1.2 mg/dL (0.55-1.02); Chloride 108 mmol/L (98-107); Glucose 93 mg/dL (74-106); Potassium 4.8 mmol/L (3.5-5.1); Sodium 142 mmol/L (136-145)
== END 2024-11-18 12:54 | disposition home or self-care (01) ==
LOC: NCHCN 12:53
PROVIDERS: PCP Family Medicine; Visit Provider Family Medicine
DX: Z01.818 Encounter for other preprocedural examination (principal)
CPT/HCPCS: 80048; 85027

== ENCOUNTER → 2024-11-20 10:47 | Outpatient (BNVA) | payer MEDICARE, OTHER, SELFPAY | PROVIDERS: PCP Family Medicine; Referring Provider Family Medicine; Visit Provider Student in an Organized Health Care Education/Training Program | DX: M16.12 Unilateral primary osteoarthritis, left hip (principal) | CPT/HCPCS: 99214 ==

== ENCOUNTER 2024-12-02 06:04 | Day surgery (SDC) | payer MEDICARE, OTHER, SELFPAY ==
[2024-12-02] VITALS (22 sets, daily range): BP systolic 116–154; BP diastolic 69–100; PULSE 62–94; RESP 11–23; TEMP 36.2–37.1; O2SAT 94–100; BMI 21.5
[2024-12-02] MEDS: Lactated Ringers 1,000 ML 80 ML IV (06:55)
[2024-12-02] MEDS: Acetaminophen 500 MG TAB 1000 MG PO (06:58)
[2024-12-02] MEDS: Celecoxib 200 MG CAP 400 MG PO (06:59)
--- NOTE | 2024-12-02 07:08 | W.ANESPRE ---
General Info Date of Service Date Performed: 12/02/24 Height: 5 ft 1 in Weight: 51.7 kg Body Mass Index (BMI): 21.5 Surgical Procedure: Operation Date: 12/02/24 07:50 Proposed Procedure Side Surgeon p Hip Total Hip Anterior Left Brennen Felipe MD Actual Procedure Side Surgeon p Hip Total Hip Anterior Left Brennen Felipe MD Pre-Op Diagnosis Post-Op Diagnosis OSTEOARTHRITIS LEFT HIP Meds Allergies and Home Medications Allergies Allergy/AdvReac Type Severity Reaction Status Date / Time codeine Allergy Nausea Verified 12/02/24 06:42 Home Medication ?Medication ?Instructions ?Recorded albuterol sulfate 90 mcg/actuation 2 puff inhalation Q6H PRN 01/17/18 aerosol inhaler (ProAir HFA) calcium 1,000 mg (as 1 ea PO DAILY 01/17/18 carbonate)-vitamin D3 20 mcg (800 unit) tablet multivitamin (Daily Value tablet) 1 ea PO DAILY 01/17/18 polyethylene glycol 3350 17 17 g PO ONCE #238 grams 06/27/22 gram/dose oral powder vitamin B complex (B 1 tab PO DAILY 06/27/22 Complex-Vitamin B12 tablet) famotidine 40 mg tablet (Pepcid) 40 mg PO DAILY PRN 06/29/22 donepezil 5 mg tablet 5 mg PO QHS 08/27/24 folic acid 1 mg tablet 1 mg PO DAILY 08/27/24 mirtazapine 15 mg tablet 15 mg PO HS 08/27/24 epinephrine 0.3 mg/0.3 mL 0.3 mg IM Q5-15M PRN 11/20/24 injection, auto-injector zoledronic acid 4 mg intravenous mg IV 11/20/24 solution acetaminophen 500 mg tablet 1,000 mg (2 x 500 mg) PO Q8H PRN 12/02/24 pain #90 tabs aspirin 81 mg tablet,delayed 81 mg PO BID 30 days #60 tabs 12/02/24 release celecoxib 200 mg capsule (Celebrex) 200 mg PO BID PRN #60 caps 12/02/24 dexamethasone 4 mg tablet 4 mg PO DAILY #2 tabs 12/02/24 docusate sodium 100 mg capsule 100 mg PO BID #28 caps 12/02/24 (Colace) oxycodone 5 mg tablet 5 mg PO Q6H PRN #12 tabs 12/02/24 pantoprazole 40 mg tablet,delayed 40 mg PO DAILY #14 tabs 12/02/24 release Current Visit Medications: Current Medications Generic Name Dose Route Start Last Admin Trade Name Emely PRN Reason Stop Dose Admin Acetaminophen 1,000 mg 12/02/24 06:00 12/02/24 06:58 Acetaminophen 500 Mg Tab PO 12/02/24 23:59 1,000 mg PREOP SAQIB Administration Celecoxib 400 mg 12/02/24 06:00 12/02/24 06:59 Celecoxib 200 Mg Cap PO 12/02/24 23:59 400 mg PREOP SAQIB Administration Ringer's Solution 1,000 mls @ 80 mls/hr 12/02/24 06:00 IV 12/02/24 23:59 INFUSION SAQIB Cefazolin Sodium/Dextrose 2 gm in 50 mls @ 100 mls/hr 12/02/24 06:00 Ancef Duplex IVPB 12/02/24 23:59 PREOP SAQIB Tranexamic Acid/Sodium Chloride 1,000 mg in 100 mls @ 600 mls/hr 12/02/24 06:00 IVPB 12/02/24 23:59 DIRECTED SAQIB IV Miscellaneous Supplies 1 each 12/02/24 06:00 Iv Access IV 12/02/24 23:59 DIRECTED SAQIB Sodium Chloride 0 ml 12/02/24 06:00 Normal Saline Flush 10 Ml Syr IV 12/02/24 23:59 PRN PRN Sodium Chloride 0 ml 12/02/24 06:00 Normal Saline 10 Ml Vial IJ 12/02/24 23:59 DIRECTED PRN Sterile Water 0 ml 12/02/24 06:00 Water,Injection,Sterile 10 Ml Vial IJ 12/02/24 23:59 DIRECTED PRN PFSH Active Problems Active Problems: Problem Status Onset Code Multiple myeloma in remission Acute C90.01 Tremor Acute R25.1 Aphagia Acute R13.0 Osteoarthritis of left hip Acute M16.12 Impaired cognition Acute R41.89 Chronic renal failure, stage 4 (severe) Acute N18.4 Renal failure Chronic N19 Non-organic loss of appetite Acute F50.89 Abnormal weight loss Acute R63.4 Nausea Acute R11.0 Chronic constipation Acute K59.09 Fe deficiency anemia Acute D50.9 Diarrhea Acute R19.7 Memory loss Acute R41.3 Anemia Chronic D64.9 Seborrheic keratosis Acute L82.1 Skin lesion of face Acute L98.9 Medical History Medical History Glaucoma Asthma Abnormal cervical Papanicolaou smear Environmental allergies Snoring Osteopenia Multinodular goiter Sebaceous cyst Surgical History Surgical History History of bone marrow transplant Spring 2023 H/O breast biopsy History of colonoscopy (~07/09/09) Incision & Drainage, Abscess or Hematoma Tobacco Smoking/Tobacco Use Status: Never Alcohol Alcohol Intake: current Alcohol intake frequency: holidays/special occasions only Alcohol type: hard liquor Substance Use Substance use: Never Substance use type: does not use Vital Signs and Lab Results Vital Signs Most Recent Vital Signs in EMR: Most Recent Vital Signs Temp Pulse Resp BP Pulse Ox 36.6 C 94 H 16 147/91 H 97 12/02/24 06:05 12/02/24 06:05 12/02/24 06:05 12/02/24 06:05 12/02/24 06:05 Lab Results Blood Type / Crossmatch: No Data to Display Complete Blood Count: White Blood Count 6.95 10^3/uL (4.4-10.8) 11/18/24 10:50 Red Blood Count 2.93 10^6/uL (3.93-5.22) L 11/18/24 10:50 Hemoglobin 10.6 g/dL (11.2-15.7) L 11/18/24 10:50 Hematocrit 32.6 % (36.0-46.0) L 11/18/24 10:50 Platelet Count 144 10^3/uL (130-400) 11/18/24 10:50 Complete Metabolic Panel: Sodium 142 mmol/L (136-145) 11/18/24 10:50 Potassium 4.8 mmol/L (3.5-5.1) 11/18/24 10:50 Chloride 108 mmol/L (98-107) H 11/18/24 10:50 Carbon Dioxide 25.2 mmol/L (21.0-32.0) 11/18/24 10:50 BUN 24 mg/dL (7-18) H 11/18/24 10:50 Creatinine 1.2 mg/dL (0.55-1.02) H 11/18/24 10:50 Est GFR (CKD-EPI 2020) 47.80 (mL/min/1.73m2) 11/18/24 10:50 Calcium 9.0 mg/dL (8.5-10.1) 11/18/24 10:50 Glucose 93 mg/dL (74-106) 11/18/24 10:50 Liver Function Panel: No Data to Display Coagulation Panel: No Data to Display Cardiac Panel: No Data to Display Arterial Blood Gas: No Data to Display Venous Blood Gas: No Data to Display Pancreas Panel: No Data to Display Thyroid Panel: No Data to Display Infectious Disease: No Data to Display Blood Cultures: No Data to Display Toxicology Panel: No Data to Display Anesthesia Assessment and Plan Anesthesia History Personal History: No History of Anesthesia Complications Family History: No Family History of Anesthesia Complications Exercise Tolerance Exercise Tolerance: Metabolic Equivalents>4 Pertinent Negatives Pertinent Negatives: No Symptoms of GERD, No Major Cardiovascular Symptoms or Complaints, No Major Pulmonary Symptoms or Complaints and No History of CVA/TIA Cardiac & Pulmonary Exam Cardiac Exam: Normal S1/S2 Heart Sounds Pulmonary Exam: Clear Bilateral Breath Sounds Implantable Cardiac Device Does patient have a Pacemaker or an ICD?: No Airway Exam Known Difficult Airway: No Mallampati Class: 1 Mouth Opening: Normal (> 3cm) Thyromental Distance: Greater than 3 cm Neck Range of Motion: Full ROM Neck Circumference: Normal Teeth Condition: Normal Dentition ASA Classification ASA Score: ASA 2 Emergency Case?: No NPO Status NPO Status: NPO Clears >2 hours, Solids >8 hours Anesthesia Plan Resuscitation Status: Full Code Anesthesia Technique: Spinal Anesthesia Airway Planned: Natural Airway Monitors Used: Standard Monitors Preoperative Comments:: Remission from multiple myeloma with stem cell transplant 2022, asthma not recently an issue, no inhaler use in years.
--- NOTE | 2024-12-02 07:14 | W.PM.DSUDISC ---
Date of service: 12/02/24 Discharge Plan Disposition Patient Disposition: Home W/Home Health Services Condition: Good Discharge Details Reason For Visit: Left hip DJD Attending Provider: Brennen Felipe Primary Care Provider: Tegan Roque Home Meds and New Rx's Prescriptions: New celecoxib [Celebrex] 200 mg capsule 200 mg PO BID PRNQty: 60 0RF Rx Instructions: Take one tablet twice daily for pain and inflammation aspirin 81 mg tablet,delayed release (DR/EC) 81 mg PO BID 30 Days Qty: 60 0RF acetaminophen 500 mg tablet 1,000 mg PO Q8H PRN Qty: 90 0RF Rx Instructions: Take two tablets up to every 8 hours as needed for pain pantoprazole 40 mg tablet,delayed release (DR/EC) 40 mg PO DAILY Qty: 14 0RF dexamethasone 4 mg tablet 4 mg PO DAILY Qty: 2 0RF Rx Instructions: Take one tablet once daily for two days docusate sodium [Colace] 100 mg capsule 100 mg PO BID Qty: 28 0RF oxycodone 5 mg tablet 5 mg PO Q6H PRNQty: 12 0RF Rx Instructions: Take one tablet up to every 6 hours as needed for severe postoperative pain Continued vitamin B complex [B Complex-Vitamin B12] Tablet 1 tab PO DAILY polyethylene glycol 3350 17 gram/dose powder 17 g PO ONCE Qty: 238 0RF Rx Instructions: To be taken as directed by prescriber's office for colonoscopy prep. epinephrine 0.3 mg/0.3 mL auto-injector 0.3 mg IM Q5-15M PRN Rx Instructions: do not exceed 3 doses per episode zoledronic acid 4 mg recon soln IV multivitamin [Daily Value] 1 EACH tablet 1 ea PO DAILY albuterol sulfate [ProAir HFA] 8.5 GM HFA aerosol inhaler 2 puff Inhalation Q6H PRN calcium carbonate-vitamin D3 1 EACH tablet 1 ea PO DAILY famotidine [Pepcid] 40 mg tablet 40 mg PO DAILY PRN Patient Comments: 06/29 pt states she doesnt use regularly donepezil 5 mg tablet 5 mg PO QHS folic acid 1 mg tablet 1 mg PO DAILY mirtazapine 15 mg tablet 15 mg PO HS Discontinued celecoxib [Celebrex] 100 mg capsule 200 mg PO BID Discharge Instructions Additional Instructions: Total Hip Discharge Instructions Activity: The most important activity is to walk. You should try to take short walks a few times a day. You have no restrictions on movement or positioning, but do not try to force what you do. You will find some stiffness and weakness with hip flexion (lifting your knee). Do not try to strengthen this too early, continue to practice walking and stairs and this will come. - Outpatient physical therapy can be helpful to help return you to a normal gait and improve your flexibility and strength. This can start around 2 weeks. For some patients, it?s not necessary. Usually this is determined at the time of discharge or at the first post-operative visit. - You should wear the GIL hose on both legs for 2 weeks. Dressing: Keep the surgical dressing in place for at least one week. After the first week it may be removed and replace with light gauze and tape or nothing. It may get wet after 3 days but avoid soaking the dressing. If it gets wet, just lightly pat dry. It is important to always keep some gauze between skin folds, especially when you are sitting. Spend some time with the wound exposed when you are lying flat as the incision does wrinkle onto itself. Medications: - You should take Tylenol and an anti-inflammatory Celebrex as your primary pain control medications. If the Celebrex is too expensive or not covered, please call the office for another alternative (Advil/Ibuprofen or Naproxen/Aleve). - You have been prescribed a stronger pain medication Oxycodone for breakthrough pain, take as needed as prescribed. - You have also been prescribed a stomach acid reduction agent Pantoprozole to help reduce stomach acid and reflux. - You have also been prescribed Decadron to help with post-operative nausea and pain. You will take this for two days starting tomorrow. - You will be taking Aspirin 81mg twice a day for DVT prevention unless instructed otherwise. - If you have constipation you should take Colace (which has been prescribed) or Miralax (which is available [id number]). It takes most people 3-4 days to have a bowel movement. Follow-up: 2 weeks If you have any acute concerns or questions, please do not hesitate to contact the office at [phone]. You may contact Dr. Felipe with any questions after hours through the hospital at [phone] or on his cell phone at [phone]. 1. Encounter Date and Reason I certify that Lianne Patino was seen by Brennen Felipe MD on 12/02/24 and that I had a [id number] encounter with this patient that meets the physician face to face encounter requirements. 2. Clinical Findings Supporting Skilled Need and Homebound Status I certify that home health services are medically necessary, include either intermittent retirement and/or physical/speech therapy, and that this patient is homebound in that absences from the home require considerable and taxing effort and are infrequent or of short duration, or are attributable to the need to receive medical care. [X] (a) Attached documentation from encounter provides clinical findings supporting skilled need and homebound status (including what assistance patient requires to leave the home). The encounter with the patient was in whole, or in part, for the following medical condition, which is the primary reason for home health care: Left hip DJD Fci: Physical Therapy: Lainne is status post left hip replacement. She would benefit from home health physical and Occupational Therapy given her significant gait limitations, weakness, recent surgery. She had an anterior approach hip replacement with no formal restrictions. All weightbearing should be done with assist device. Speech Therapy: Homebound: Lianne is unable leave her house unassisted due to weakness and gait disturbance. 3. Certification and Authentication I certify that I composed the above information based on my clinical judgement relating to this patient's medical condition and, if applicable, clinical findings communicated to me by the NPP or inpatient physician who performed the Home Health Referral. All further orders will be obtained through Dr. Felipe Stand Alone Forms: Anesthesia Discharge Inst.Juan ([facility]) Referrals: Brennen Felipe MD [ [facility] STAFF PHYSICIAN] - Equipment/Supplies: Walker Activity:: Elevate Remove Dressings/Wound Care:: Do Not Remove Shower/Bathe:: Cover Diet:: As Tolerated Discharge Orders Discharge Orders: Discharge Order (Routine); Ordered 12/02/24 Ordered By: Stella Navarro
[2024-12-02] MEDS: ceFAZolin 2 GM/50 ML BAG IVPB (07:33)
[2024-12-02] MEDS: TRANEXAMIC ACID/SOD. CHL. 1,000 MG/100 ML BAG 600 MG IVPB (07:56)
--- NOTE | 2024-12-02 08:54 | DI.RAD_ITS ---
Exam(s) XR HIP LT IN OR EXAM: XR HIP LT IN OR CLINICAL HISTORY: OSTEOARTHRITIS LEFT HIP. TECHNIQUE: 2D and realtime digital imaging was performed. COMPARISON: CR XR HIP 1 VIEW WITH ORTHOPELVIS LEFT from 08/11/2024 FINDINGS: Hard copy images show placement of a left hip prosthesis. The alignment appears satisfactory. Please see procedure note for details. Fluoro time: 27.6seconds RADIATION DOSE DELIVERED: Charlesr=1.9 mGy
--- NOTE | 2024-12-02 08:58 | ROE_ITS ---
Operative Note Operative Note PRE-OP DIAGNOSIS: Left Hip Osteoarthritis POST-OP DIAGNOSIS: same PROCEDURE: Left Anterior Total Hip Arthroplasty with Intraoperative Navigation SURGEON: Brennen Felipe ANESTHESIA TYPE: General LMA/ETT Refer to Anesthesia Record ESTIMATED BLOOD LOSS: 200 PATHOLOGY: none sent TOURNIQUET TIME: 0 COMPLICATIONS: None Patient was transported to: PACU Patient's condition: stable Implants: 1. Depuy [place] Acetabular Component, 48mm 2. Depuy Acetabular Liner, [id number] 3. Depuy Actis Standard Collared Femoral Stem, Size 3 4. Depuy Altrx Ceramic Femoral Head, Size 32+5mm Indications: I have seen Lianne in clinic for symptoms of hip arthritis, confirmed with radiographic findings. Lianne has exhausted nonoperative methods and was having significant limitations in daily function and desired better function and less pain. I discussed the technical details of a hip replacement. I explained the risks of the procedure to include, but not limited to, bleeding, infection, pain, stiffness, fracture, damage to nerves and vessels, damage to muscles and tendons, loosening, instability, leg length inequality, need for repeat procedure, blood clot and cardiopulmonary demise. Despite these risks, she elected to proceed. Findings: There was significant signs of arthritis throughout the hip along with synovitis throughout. Procedure Description: Lianne was greeted in the preoperative holding area where the correct side was identified and marked. The consent was reviewed with the patient and signed. The history and physical was updated. All questions were answered. She was taken back to the operating room. A spinal anesthestic was attempted, but unsuccessful and thus converted to a general anesthetic. The feet were wrapped with cast padding and Coban and then placed into the boot liners and then into the boots. Care was taken to protect the skin and make sure the heels were fully down and the boots were stable. The patient was then positioned onto the HANA table. Both legs were held in a neutral position. SCDs were applied. The patient was then slid down onto a peroneal post. Prophylactic antibiotics in the form of Cefazolin were administered. 1g of Tranxemic Acid was given intravenously within 30 minutes of incision. The left leg was then prepped with Chloraprep and draped in a standard fashion. A second prep with Chloraprep was performed prior to placement of a shower-curtain type drape with Iodine impregnated skin protection. A timeout to confirm correct identity, side and site, procedure, allergies, anesthesia, and medical concerns was performed. An obliquely oriented incision was made starting lateral to the ASIS and running distal over the Tensor Fascia Chelle (TFL) muscle belly toward the fibular head, approximately 10cm. The skin and soft tissue was dissected sharply, through Garret?s fascia, and to the fascia of the TFL. With the fascia and superior border of the IT band identified, the fascia was incised with a new knife just above any perforators from the IT band. The TFL muscle belly was bluntly dissected away from the fascia and moved laterally. The fat between TFL and rectus was identified to ensure the dissection was not within the TFL. Blunt di ssection created space between abductors and the capsule and retractor was placed over the lateral femoral neck. The fibers of the rectus femoris tendon were identified and these were freed from the anterior capsule. A second cobra retractor was placed around the medial femoral neck. The TFL was further retracted laterally to show the deep fascia. Careful dissection through this layer identified three main crossing vessels of the lateral femoral circumflex. These were cauterized in multiple locations and then cut without any noticeable bleeding. The TFL was further released bluntly from the deep fascia to expose anterior hip capsule and fat The soft tissue orthopaedic retractor was then placed beneath the TFL and against sartorius and medial soft tissues to protect and retract the soft tissues. A T-capsulotomy was then performed starting at the superior lateral acetabulum and moving distally to the intertrochanteric ridge. These capsular flaps were tagged with a No. 1 Vicryl and elevated from within. The capsular flaps were released to the shoulder of the lateral neck and to the lesser trochanter to give excellent visualization of the proximal femur. A neck osteotomy was performed using an oscillating saw based on preoperative templates. This cut started in the shoulder and of the lateral neck and exited medially. The saw was at all times directed medially to avoid injury to the greater trochanter. Gross traction was applied to the leg and the osteotomy opened. The femoral head was removed with a corkscrew, making sure to protect the TFL on its exit. Traction was released after head removal. This was measured on the back table to determine the starting reamer size. Portions of the rectus obscuring visualization were minimally elevated off the superior acetabulum. An anterior retractor was placed over the anterior wall between capsule and labrum and attached to the Gripper retraction system. The femur was rotated to 90 degrees and medial capsule was fully released until the lesser trochanter was palpable and visible; the femur was returned to 30 degrees. A posterior retractor was placed similarly between capsule and labrum. This provided excellent visualization. The contents of the cotyloid fossa were removed with electrocautery and the labrum was removed with a knife. There was a notable floor osteophyte. There was significant chondromalacia of the superior acetabulum. There is also significant synovitis within the hip joint which was resected. Acetabular reaming began with a 44mm reamer. This first reaming was directed anterior to posterior and medial to get down to the true floor. This was inspected and reamed until the true floor was reached. The anterior retractor was then released and entry and exit was provided by traction on the capsular flaps. I then reamed sequentially up to a 48mm reamer where good fit was obtained. The larger reamers were oriented based on anatomical reference of the anterior and lateral peraza to ensure proper abduction and anteversion. Positioning and size was confirmed with the fluoroscopy. A 48mm Depuy [place] acetabular component was selected. The acetabulum was reamed around the periphery with the selected acetabular size to prevent a rim fit. The deep tissues were irrigated. The acetabular component was then impacted in a position of about 40-45 degrees of abduction and 15-20 degrees of anteversion, using the patient?s anatomy as the ultimate landmark. Fluoroscopy was used to confirm this. There was excellent department manager of the acetabular component and the inserting handle was removed. The acetabular liner, Depuy [id number] polyethylene liner, was inserted and lined up with the tines of the acetabular component. There was no soft tissue interposition. The liner was then impacted into position and confirmed to be well-seated. A portion of the suleman-articular cocktail was then injected around the acetabulum into the capsule and periosteum. This cocktail consisted of 123mg of Ropivacaine, 0.25mg of Epinephrine, 0.04mg of Clonidine, and 15mg of Ketorolac, diluted to 50cc. The leg was rotated to 120 degrees. Any remaining medial capsule was released until the lesser trochanter was easily palpable. A retractor was placed medially. The lateral capsule was further released into the shoulder to allow access to the greater trochanter. A Jackson retractor was placed over the greater trochanter which allowed the trochanter to flip in front of the capsule for excellent exposure. The leg was brought down into maximal extension and 20 degrees of adduction while ensuring there was no impingement on the acetabulum. Any remnant capsule within the trochanter was released. Piriformis and obturator externis were identified and protected. There was excellent access to the proximal femur. The lateral neck remnant was removed with a rongeur. A blunt canal probe was used to identify the canal and trajectory for later broaching. A box osteotome initiated the broach course. A small curved rasp and a curved curette were used to work laterally. Broaching then began with a starter Actis broach. This was inserted manually around the trochanter and into the canal before mallet blows. The broach was seated to a few millimeters below the cut level based on the neck cut and the preoperative template. Sequential broaching was continued with the [employer] pneumatic broaching device until a tight fit was obtained with good rotational control of the femur. A trial standard neck was inserted along with a +5 trial head. The leg was brought out of extension and adduction and then reduced with traction and internal rotation. The leg was stable anteriorly in a position of 30 degrees of extension and 90 degrees of external rotation. Fluoroscopy was used to ensure there was no fracture and the stem was seated well. Leg lengths were checked with an AP pelvis and pelvic reference points. Associa navigation system was used to confirm appropriate positioning and leg length and offset. Once content with the desired offset and leg lengths, the leg was brought back into extension, external rotation and adduction. The periosteum and surrounding tissue was injected with remaining portion of the suleman-articular cocktail. The proximal femur was irrigated as well as the deep tissues. The [employer]itro[employer]ell[employer] standard collared stem, size 3, was then manually inserted into the proximal femur making sure to control rotation. It was then malleted into position with light blows, giving breaks to allow bone expansion and decrease risk of fracture. The selected Depuy Altrx Ceramic Head, size 32+5mm, was then placed onto the clean and dry trunnion and secured with impaction onto the tapered fit. The leg was brought back out of extension and adduction and reduced with traction and internal rotation. Stability was confirmed with no shuck at 90 degrees of external rotation and 30 degrees of extension. No impingement through range of motion arc. Final x-ray images were obtained with fluoroscopy to confirm adequate positioning and no intraoperative fracture. The deep tissues were thoroughly irrigated with Surgiphor, betadine solution. This was allowed to sit in the wound for 3 minutes before being thoroughly irrigated out with normal saline. The capsule was then reapproximated with the previously placed sutures and the indirect head of the rectus was inspected and reapproximated with a #1 Vicryl. The TFL fascia was finally closed with a No. 2 Stratafix, barbed suture. Deep tissues were then reapproximated with 0 Vicryl and a running 2-0 Vicryl. The skin was closed with a running 4-0 Monocryl in a subcuticular fashion. This was reinforced with skin glue. A Mepilex silver dressing was applied. At the end of the case, all counts were correct. Lianne was transferred to the hospital bed without difficulty and suffering no apparent complication. She has a good prognosis. Physical therapy will start today and without restrictions, weight-bearing as tolerated. Aspirin 81mg BID will be used for DVT prophylaxis. Date of Procedure: 12/02/24
[2024-12-02] MEDS: HYDROmorphone 2 MG/ML SYR IVP ×2 (09:25→09:34)
[2024-12-02] MEDS: oxyCODONE 5 MG TAB PO (10:21)
[2024-12-02] MEDS: Tranexamic Acid 650 MG TAB 1300 MG PO (10:21)
--- NOTE | 2024-12-02 12:28 | W.ANESPOSTOP ---
Postoperative Evaluation Date, Time and Location Date Performed: 12/02/24 Time Performed: 12:28 Patient Location: Day Surgery Unit Vital Signs Most Recent Imported Vital Signs: Most Recent Vital Signs Temp Pulse Resp BP Pulse Ox 36.4 C L 83 14 124/79 96 12/02/24 10:27 12/02/24 10:27 12/02/24 10:27 12/02/24 10:27 12/02/24 10:27 Pain Score Most Recent Pain Score: Most Recent Pain Score Pain Level 7 12/02/24 10:27 Assessment Mental Status: Awake (Alert & Oriented to Patient Baseline) Airway and Respiratory Function: Patent airway with normal (patient baseline) respiratory exam Cardiovascular Function: Hemodynamically Stable Hydration Status: Adequately Hydrated Nausea & Vomiting: No Nausea or Vomiting Pain: Pain is tolerable per patient Peripheral Nerve Block: Patient did not receive a nerve block
--- NOTE | 2024-12-02 12:49 | IN_ITS ---
PT Notes Visit Reasons: Left hip DJD Physical Therapy Day Surgery Initial Evaluation Date: 12/02/2024 Referring Doctor: Stella Navarro PT Orders: PT CONSULT: [] Status post Ortho surgery Precautions: WBAT left lower extremity Patient Profile/Admitting Diagnosis: Patient 74-year-old female presenting s tatus post elective left BERNICE on . Postop complicated PMHX: Multiple myeloma in remission (Acute) Tremor (Acute) Aphagia (Acute) Osteoarthritis of left hip (Acute) Impaired cognition (Acute) Memory loss (Acute) Chronic renal failure, stage 4 (severe) (Acute) Skin lesion of face (Acute) Seborrheic keratosis (Acute) Anemia (Chronic) Diarrhea (Acute) Fe deficiency anemia (Acute) Chronic constipation (Acute) Nausea (Acute) Abnormal weight loss (Acute) Non-organic loss of appetite (Acute) Renal failure (Chronic) Medical History Glaucoma Asthma Abnormal cervical Papanicolaou smear Environmental allergies Snoring Osteopenia Multinodular goiter Sebaceous cyst Surgical History History of bone marrow transplant H/O breast biopsy History of colonoscopy (~07/09/09) Incision & Drainage, Abscess or Hematoma Social History/Home Situation: Patient resides alone 4 steps to enter home with no rail. She lives with her dogs. She is independent with mobility, ADL, light meal prep,. She has assistance with transportation and shopping. A friend will be staying with her. Equipment Owned/DME: [employer], issued FWW by [employer] Subjective: Pt reports she is feeling better Objective: [] General Observation: female reclined in bed with ice to left hip . Her friend is visiting. Mental Status: Alert awake, slow to respond to questions with delayed responds to instructions as well. Pain: left hip 4/10 with pain meds while in bed, reduced to a 2/10 left hip when out of bed. ROM: [] Right Upper Extremity: WFL Left Upper Extremity: WFL Right Lower Extremity: WFL Left Lower Extremity: WFL Strength: [] Right Upper Extremity: 5/5 Left Upper Extremity:5/5 Right Lower Extremity: grossly 4/5 Left Lower Extremity: Hip flexion: 3- /5; hip abduction: 3- /5; hip extension:3- /5; knee extension: 3 /5; knee flexion: 2+ /5 ankle DF: 3 /5 ; ankle PF: 3 /5 Sensation: intact to touch BLE Bed Mobility/Transfers: [] Supine to sit supervision with cues to initiate Sit to stand CGA initially then supervision with cues for hand placement Stand to sit Supervision with cues for hand placement Bed to chair CGA initially then progressed to supervision with FWW cues for sequencing turn Gait: CGA initially progressed to supervision with FWW 50 feet x 2 step to pattern with cues for sequencing FWW management to keep slightly away from body to increase GERA stairs : 2x 6 steps and 3 x4 steps with cane and PURCHASING CLERK step to pattern with cues for sequencing and increased time Balance: [] Static Sitting: good Dynamic Sitting: fair + Static Standing: Fair + with BUE support Dynamic Standing: Fair with BUE support Special Tests: [] Mobility Limitations Standardized Measure [] [facility] AM-PAC 6 clicks Basic Mobility Inpatient Short Form: [] Raw Score: 16 CMS Score: 54.16% Informed Consent/Education: Patient instructed in purpose of PT consult. Treatment:22880: Instructed responsible person in stair technique with SPC and PURCHASING CLERK, simulated car transfer . Packet containing BERNICE exercise protocol has been given to patient. Education and training on initial set of exercises that can be done at home have been completed with patient. Assessment: Pt is a 74 yo female with delayed processing, flat affect.who would benefit from HHPT to assist with functional mobility and strengthening LE . Patient presents with clinical signs and symptoms consistent with current/admitting diagnoses that have resulted to mobility limitations, gait instability, generalized weakness, and impairment of motor control as demonstrated by the following impairment level findings: 1. Decreased strength to left hip major muscle groups 2. Impaired standing balance 3. Limitation of joint range of motion in left hip 4. Impaired functional activity tolerance 5. delayed processing of information/ instructions Impairments are contributing to the following functional limitations: 1. Inability to safely ambulate without assistive device 2. Increase completion time for mobility ADL performance 3. Increased fall risk 4. decline in bed mobility 5. decline in transfers 6. difficulty performing stairs without assistance safely Patient is assessed as a moderate complexity based on the following: History: 74-year-old female with impairment level findings, functional limitations, and past medical history as indicated above Examination: Demonstrable impairment in strength, balance, and mobility level with underlying impairments and functional limitations as documented above Presentation: evolving Decision Making: moderate Goals: N/A. PT evaluation and 1-2 treatment sessions only for functional mobility training using recommended AD and for HEP instruction. Plan of Care/Treatment Plan: N/A. PT evaluation and 1-2 treatment session only for functional mobility training using recommended AD and for HEP instruction. DISCHARGE RECOMMENDATIONS: Home with TREATMENT CODE/TIME: 20160, 10960/1127?[id number] Thank you for the opportunity to participate in the care of this patient. Elba Camarillo, PT [facility]
== END 2024-12-02 12:50 | disposition home health service (06) ==
PROVIDERS: PCP Family Medicine; Visit Provider Student in an Organized Health Care Education/Training Program
PROC: (CPT 27130; principal; 2024-12-02 07:30)
DX: M16.12 Unilateral primary osteoarthritis, left hip (principal)
CPT/HCPCS: 20985; 27130; 97161; 97530; 73501; C1776; J0690; J1100; J1171; J2003; J2250; J2401; J2405; J2704

== ENCOUNTER 2024-12-15 15:55 | Outpatient (CLI) | payer MEDICARE, OTHER, SELFPAY ==
--- NOTE | 2024-12-15 13:00 | DI.RAD_ITS ---
Exam(s) XR HIP LT COMPLETE AP PELVIS EXAM: XR HIP LT COMPLETE AP PELVIS INDICATION: 1ST POST OP L BERNICE. COMPARISON: CR XR HIP 1 VIEW WITH ORTHOPELVIS LEFT from 08/11/2024 XA XR HIP LT IN OR from 12/02/2024 TECHNIQUE: 2D digital imaging was performed. Three views. FINDINGS: Stable alignment of the recently placed left hip prosthesis. No abnormal surrounding bony lucencies. Mild right hip joint space narrowing. Spurring from the acetabula and margin of the femoral head. M ild degenerative changes of the SI joints. Pubic symphysis unremarkable. IMPRESSION: Stable appearance of left hip prosthesis. Stable degenerative changes of the right hip DATA REPOSITORY: RADIATION DOSE DELIVERED:
== END 2024-12-15 15:56 | disposition home or self-care (01) ==
LOC: DIORS 15:56
PROVIDERS: PCP Family Medicine; Visit Provider Physician Assistant
DX: Z96.642 Presence of left artificial hip joint (principal); Z47.1 Aftercare following joint replacement surgery
CPT/HCPCS: 99024; 73502

== ENCOUNTER 2025-01-13 21:23 | Outpatient (REF) | payer MEDICARE, OTHER, SELFPAY ==
[2025-01-13 22:50] LABS: TSH (W/Ref FT4) 1.28 uIU/mL (0.36-3.74)
[2025-01-13 23:19] LABS: Iron 65 ug/dL (50-170); Total Iron Binding Capacity 322 ug/dL (250-450); Transferrin Sat 20 % (15-50)
[2025-01-14 15:38] LABS: Ferritin 73 ng/mL (8-252)
== END 2025-01-13 21:24 | disposition home or self-care (01) ==
LOC: NCHCN 21:23
PROVIDERS: PCP Family Medicine; Visit Provider Family Medicine
DX: L65.9 Nonscarring hair loss, unspecified (principal)
CPT/HCPCS: 82728; 83540; 83550; 84443

== ENCOUNTER → 2025-01-15 10:48 | Outpatient (BNVA) | payer MEDICARE, OTHER, SELFPAY | PROVIDERS: PCP Family Medicine; Referring Provider Family Medicine; Visit Provider Physician Assistant | DX: Z96.642 Presence of left artificial hip joint (principal); Z47.1 Aftercare following joint replacement surgery | CPT/HCPCS: 99024 ==

== ENCOUNTER 2025-02-12 13:56 | Outpatient (REF) | payer MEDICARE, OTHER, SELFPAY ==
[2025-02-12 15:24] LABS: Abs Immature Grans 0.02 10^3/uL (0.0-0.06); Absolute Basophil Count 0.03 10^3/uL (0.0-0.2); Absolute Eosinophil Count 0.07 10^3/uL (0.0-0.7); Absolute Lymphocyte Count 1.11 10^3/uL (1.2-3.4); Absolute Monocyte Count 0.63 10^3/uL (0.1-0.8); Absolute Neutrophil Count 5.18 10^3/uL (1.2-6.7); Basophils % 0.4 %; HCT 34.5 % (36.0-46.0); HGB 11.5 g/dL (11.2-15.7); Immature Grans % 0.3 %; Lymphocytes % 15.8 %; MCH 36.3 pg (27.0-33.0); MCHC 33.3 % (32.0-36.0); MCV 109 fL (80-95); MPV 9.3 fL (8.0-11.0); Monocytes % 8.9 %; Neutrophils % 73.6 %; Platelet Count 162 10^3/uL (130-400); RBC 3.17 10^6/uL (3.93-5.22); RDW 11.9 % (11.7-14.6); RDW-SD 47.6 fL; WBC 7.04 10^3/uL (4.4-10.8)
[2025-02-12 15:44] LABS: ALT 29 U/L (14-59); AST 23 U/L (15-37); Albumin 3.8 g/dL (3.4-5.0); Alkaline Phosphatase 86 U/L (46-116); Anion Gap 7.9 mmol/L (3-11); BUN 32 mg/dL (7-18); Bilirubin, Total 0.3 mg/dL (0.2-1.0); CO2 27.1 mmol/L (21.0-32.0); CREATININE 1.3 mg/dL (0.55-1.02); Chloride 107 mmol/L (98-107); Diff Comment RBC Morph Reviewed; Estimated GFR 43.15 (mL/min/1.73m2); Glucose 95 mg/dL (74-106); Macrocytosis 1+; Potassium 4.3 mmol/L (3.5-5.1); Sodium 142 mmol/L (136-145); Total Protein 7.3 g/dL (6.4-8.2); Uric Acid 2.7 mg/dL (2.6-6.0)
[2025-02-12 15:45] LABS: C-Reactive Protein < 0.50 mg/dL (<or=0.5)
[2025-02-13 10:55] LABS: Lyme Ab w Rflx to Lyme Confirm Negative (Negative)
== END 2025-02-12 13:57 | disposition home or self-care (01) ==
LOC: NCHCN 13:56
PROVIDERS: PCP Family Medicine; Visit Provider Nurse Practitioner Family
DX: M25.511 Pain in right shoulder (principal)
CPT/HCPCS: 80053; 84550; 85025; 86140; 86618

== ENCOUNTER 2025-03-02 10:54 | Outpatient (CLI) | payer MEDICARE, OTHER, SELFPAY ==
--- NOTE | 2025-03-02 | DI.RAD_ITS ---
Exam(s) XR SHOULDER RT COMPLETE 2+V EXAM: XR SHOULDER RT COMPLETE 2+V CLINICAL HISTORY: R25.511 Pain in RT shoulder, Acute pain. TECHNIQUE: 2D digital imaging was performed of the right shoulder. Six images were obtained. AP, Grashey, Y-view and axillary views were obtained. COMPARISON: No exams were available for comparison FINDINGS: BONES: No acute fracture is present. No bony destructive lesion is seen. JOINTS: No dislocation present. There are mild degenerative changes seen of both the acromioclavicular and glenohumeral joints. SOFT TISSUE: There is a faint calcification adjacent to the greater tuberosity suggesting calcific tendinitis. IMPRESSION: Degenerative changes seen in the right shoulder as described. DATA REPOSITORY: RADIATION DOSE DELIVERED:
== END 2025-03-02 11:14 ==
LOC: DI 10:55
PROVIDERS: PCP Family Medicine; Visit Provider Family Medicine
DX: M25.511 Pain in right shoulder (principal)
CPT/HCPCS: 73030

== ENCOUNTER 2025-03-02 16:07 | Outpatient (REF) | payer MEDICARE, OTHER, SELFPAY ==
[2025-03-02 19:49] LABS: Abs Immature Grans 0.01 10^3/uL (0.0-0.06); HCT 34.0 % (36.0-46.0); HGB 11.0 g/dL (11.2-15.7); Immature Grans % 0.2 %; MCH 34.9 pg (27.0-33.0); MCHC 32.4 % (32.0-36.0); MCV 108 fL (80-95); MPV 9.8 fL (8.0-11.0); Platelet Count 149 10^3/uL (130-400); RBC 3.15 10^6/uL (3.93-5.22); RDW 12.2 % (11.7-14.6); RDW-SD 48.1 fL; WBC 4.69 10^3/uL (4.4-10.8)
[2025-03-02 19:57] LABS: Macrocytosis 1+
[2025-03-02 20:20] LABS: C-Reactive Protein < 0.50 mg/dL (<or=0.5)
[2025-03-04 10:41] LABS: Lyme Ab w Rflx to Lyme Confirm Negative (Negative)
== END 2025-03-02 16:08 | disposition home or self-care (01) ==
LOC: NCHCN 16:07
PROVIDERS: PCP Family Medicine; Visit Provider Family Medicine
DX: M25.511 Pain in right shoulder (principal)
CPT/HCPCS: 85025; 86140; 86618

== ENCOUNTER → 2025-03-31 13:10 | Outpatient (BNVA) | payer MEDICARE, OTHER, SELFPAY | PROVIDERS: PCP Family Medicine; Referring Provider Family Medicine; Visit Provider Student in an Organized Health Care Education/Training Program | DX: M19.011 Primary osteoarthritis, right shoulder (principal); N18.4 Chronic kidney disease, stage 4 (severe) | CPT/HCPCS: 99213 ==

== ENCOUNTER → 2025-04-13 13:42 | Outpatient (BNVA) | payer MEDICARE, OTHER, SELFPAY | PROVIDERS: PCP Family Medicine; Referring Provider Family Medicine; Visit Provider Nurse Practitioner Adult Health | DX: F03.90 Unspecified dementia, unspecified severity, without behavioral disturbance, psychotic disturbance, mood disturbance, and anxiety (principal) | CPT/HCPCS: 99215 ==

== ENCOUNTER → 2025-06-25 02:21 | Outpatient (CLI) | payer MEDICARE, OTHER, SELFPAY ==
--- NOTE | 2025-06-25 | DI.MAMMO_ITS ---
Exam(s) MAMMO SCREENING EXAM: MAMMO SCREENING CLINICAL HISTORY: SCREENING,Z12.31 TECHNIQUE: Bilateral full field digital CC and MLO mammographic images were obtained with 3D tomosynthesis and utilizing computer aided detection (CAD). COMPARISON: Comparison is made with prior examinations. FINDINGS: Masses/Architectural Distortion: No suspicious masses or areas of architectural distortion are present. Microcalcifications: No suspicious pleomorphic-type are seen. Skin Thickening/Nipple Retraction: None. IMPRESSION: 1. No significant interval change with no specific features of malignancy noted. 2. Unless there is more urgent need, screening mammography is recommended, as per [employer] guidelines. BI-RADS Category 1 - Negative Breast Density - Category C - The breast are heterogeneously dense, which may obscure small masses. Breast density Category C or D implies that the patient has dense breast tissue. Dense breast tissue can make it harder to find cancer on a mammogram. Dense breast tissue is also associated with an increased risk of breast cancer. This information about the result of the mammogram report was provided to the patient to raise their awareness. Use this report when you speak with the patient about their risks for breast cancer, which includes their family history. At that time, you may recommend additional screening tests (Ultrasound or MRI) as these tests may add significant information. A negative radiographic report should not delay biopsy if a dominant or clinically suspicious mass is present. Up to ten percent of cancers are not identified on mammography. A negative report may reinforce clinical impression. Adenosis and dense breasts may obscure an underlying neoplasm. False positive reports average 6 to 10%. Patient will receive a letter notifying them of these results.
== END ==
LOC: DI 02:21
PROVIDERS: PCP Family Medicine; Visit Provider Family Medicine
DX: Z12.31 Encounter for screening mammogram for malignant neoplasm of breast (principal)
CPT/HCPCS: 77063; 77067